=== PATIENT | female | born 1970 | race Caucasian/White ===

== ENCOUNTER → 2023-12-23 12:59 | Outpatient (REF) | payer OTHER, SELFPAY | LOC: HWWDC 12:59 | PROVIDERS: ATTENDING PHYSICIAN Internal Medicine | DX: Z12.31 Encounter for screening mammogram for malignant neoplasm of breast (principal) | CPT/HCPCS: 77063; 77067 ==

== ENCOUNTER 2024-05-25 15:09 | Emergency (ER) | payer OTHER, SELFPAY ==
[2024-05-25 15:18] VITALS: BP 174/100
[2024-05-25 15:52] LABS: % Basophils 0.7 % (0-2); % Eosinophils 3.9 % (0-6); % Immature Granulocytes 0.2 % (0-0.5); % Monocytes 8.3 % (1.7-9.3); % Neutrophils 65.9 % (42.2-75.2); Absolute Basophils 0.1 10^3/uL (0-0.2); Absolute Eosinophils 0.3 10^3/uL (0-0.7); Absolute Lymphocytes 1.9 10^3/uL (1.2-3.4); Absolute Monocytes 0.7 10^3/uL (0.1-0.6); Absolute Neutrophils 5.8 10^3/uL (1.4-6.5); Hematocrit 38.9 % (37.0-47.0); Hemoglobin 12.5 g/dL (12.0-16.0); Mean Corp Hgb Conc. 32.1 g/dL (33.0-37.0); Mean Corpuscular Hgb 25.1 pg (27.0-31.0); Mean Corpuscular Volume 78.1 fL (81.0-99.0); Mean Platelet Volume 8.6 fL (7.4-10.4); Nucleated Red Blood Cells % 0 %; Platelet Count 330 10^3/uL (130-400); Red Blood Cell Count 4.98 10^6/uL (4.20-5.40); Red Cell Dist. Width 14.2 % (11.5-14.5); White Blood Cell Count 8.8 10^3/uL (4.8-10.8)
[2024-05-25 16:02] LABS: ALT (SGPT) 27 U/L (0-35); AST (SGOT) 31 U/L (14-36); Albumin 4.6 g/dl (3.5-5.0); Alkaline Phosphatase 120 U/L (38-126); Blood Urea Nitrogen 16 mg/dl (7-17); Calcium 9.6 mg/dl (8.4-10.2); Carbon Dioxide 25 mmol/L (22-30); Chloride 103 mmol/L (98-107); Glucose 99 mg/dl (70-99); Potassium 4.3 mmol/L (3.5-5.1); Sodium 138 mmol/L (135-145); Total Bilirubin 0.5 mg/dl (0.2-1.3); Total Protein 7.6 g/dl (6.3-8.2); eGFR > 60.00
[2024-05-25 17:38] VITALS: BP 138/83; BMI 43.0
[2024-05-25 17:39] VITALS: BP 138/83
--- NOTE | 2024-05-25 17:40 | ED.GENMED ---
History of Present Illness
General
Chief Complaint: Dizziness
Source: patient and spouse
Exam Limitations: none
Time Seen by Provider: 05/25/24 17:25
Nursing documentation reviewed up to this point in time: agreed with
History of Present Illness
History of Present Illness:
54-year-old female with history of hypertension, distant history of cardiomyopathy with AICD in place who presents to the ER for evaluation after an episode of dizziness. Patient says she was at work around 3 PM sitting on her computer when she had
rather abrupt onset of intense room spinning sensation. She says this was associated with nausea and diaphoresis. Had an episode of vomiting here. She came to the ER for evaluation. Since arrival she says symptoms have improved. She still has
some mild symptoms with positional change she says. She denies any associated headache. Denies any change in her vision or speech. She denies any focal weakness or numbness in her extremities. She denies any chest pain or palpitations, shortness
of breath, abdominal pain or any other complaints. She says she has never had similar symptoms in the past. She denies recent viral syndrome.
Past History
Past History
ED Past Medical History: None
ED Past Surgical History:
Social History
Tobacco: Non-smoker
Personal:
Living: with family
Review of Systems
Review of Systems
All Other Systems: ROS reviewed and negative except as documented in HPI and ROS
Constitutional: Denies fever or chills
EENT: Denies sore throat or runny nose
Respiratory: Denies cough or trouble breathing
Cardiac: Denies chest pain or palpitations
ABD/GI: Reports nausea and vomiting; Denies abdominal pain
: Denies flank pain
Musculoskeletal: Denies neck pain or back pain
Neurological: Reports dizzy; Denies headache, weakness or numbness
Phy Exam
Physical Exam
Physical Exam:
General: Awake, alert, oriented x3; no acute distress
Head: Normocephalic, atraumatic
Eyes: Conjunctiva normal, EOMI without nystagmus, pupils equal round and reactive to light bilaterally; negative Magdi-Hallpike
Ears: TMs clear bilaterally
Throat: Airway intact, handling secretions
Neck: Trachea midline, supple without meningismus
Lungs: Clear to auscultation bilaterally, no wheezing, rales, rhonchi
Heart: Regular rate and rhythm, no murmurs, gallops, or rubs
Abd: Soft, non distended, nontender
Neuro: Cranial nerves intact 2 through 12, speech fluid without dysarthria or aphasia, no limb ataxia, motor and sensory intact in all extremities
Extremities: No edema in extremities, warm and well-perfused
Scores
Heart Failure Risk
Heart Failure Risk Score: Not Applicable
Heart Score for Chest Pain Patients
STEMI patient?: Not applicable
Withdrawal Assessment of Alcohol
Withdrawal Assessment Completed?: Not applicable
Course
Orders/Labs/Results
Orders:
Orders
05/25/24 15:20
Electrocardiogram (*1) Urgent
Reason for Study: Vertigo / Dizzy
EKG- Treatment ONCE
05/25/24 15:37
Complete Blood Count/With Diff Urgent
Comprehensive Metabolic Panel Urgent
05/25/24 17:38
CT Head W/o Iv Contrast Urgent
Comment:
Reason For Exam: dizziness
Interrogate Pacemaker- Treatment ONCE
Abnormal Lab Results
05/25/24
15:37
MCV 78.1 L fL
(81.0-99.0)
MCH 25.1 L pg
(27.0-31.0)
MCHC 32.1 L g/dL
(33.0-37.0)
Absolute Monos (auto) 0.7 H 10^3/uL
(0.1-0.6)
05/25/24 15:37
05/25/24 15:37
Vital Signs
Initial and Last Documented VS:
Initial Vital Signs
Temp Pulse Resp BP Pulse Ox
36.6 C 85 16 174/100 95
05/25/24 15:18 05/25/24 15:18 05/25/24 15:18 05/25/24 15:18 05/25/24 15:18
Last Documented Vital Signs
Temp Pulse Resp BP Pulse Ox
36.6 C 97 24 140/80 98
05/25/24 15:18 05/25/24 18:31 05/25/24 18:31 05/25/24 18:00 05/25/24 18:15
MDM/Problems Addressed
Differential Diagnosis Includes:
BPPV, labyrinthitis, CVA considered less likely clinically
MDM/Problems Addressed:
54-year-old female presents evaluation of dizziness�started at rest this afternoon and symptoms have improved although she is felt some mild symptoms with positional change. Hypertensive otherwise normal vitals. Physical exam as above. Labs sent
off in triage including a CBC and CMP which were unremarkable. Given no similar symptoms in the past we will check CT head to rule out mass or bleed but very low suspicion for central vertigo. Will check EKG and interrogate device. Monitor
closely reassess after the above. Clinical suspicion is for peripheral vertigo.
CT head negative for any acute pathology. Reviewed [employer] report�no events noted. Patient stable on clinical reassessment. Symptoms have resolved she was up into the bathroom without symptoms. Presentation consistent with peripheral vertigo.
Stable for discharge. Meclizine as needed, referral to ENT. All questions answered.
Acute Exacerbation and/or Progression of Chronic Illness:
Acutely hypertensive
Acute Exacerbation and/or Progression of Chronic Illness: HTN
*Radiology
Radiology exam reviewed: radiology read reviewed
*Pulse Oximetry
Patient hypoxic: no
*EKG
Interpreted by ED Provider?: Yes
Heart Rate: 83
Rate: normal
Rhythm: sinus
[place]: normal axis
Interval: normal interval
QRS Pattern: normal QRS
Ischemia: no ischemia
*Critical Care Note
Total Time (30-74mins, 75-104mins- exclusive of procedures): Not Applicable
Data Reviewed
Review of Other/Old Records Reveals: Records
Source: patient and spouse
ED Attending Note
-
Portions of this chart may have been created with voice recognition software.� Occasional wrong word or��sound alike� substitutions may have occurred due to the inherent limitations of voice recognition software.
Discharge Plan
Departure
Patient Disposition: Home (Routine Discharge)
Date of Disposition: 05/25/24
Time of Disposition: 19:16
Patient with high blood pressure during this ER visit?: Yes
Discharge Problem:
Vertigo
Instructions: Vertigo (a type of dizziness)
Prescriptions:
New
meclizine 25 mg tablet
25 mg PO BID PRN (Reason: dizziness) Qty: 20 0RF
No Action
pantoprazole [Protonix] 40 MG tablet,delayed release (DR/EC)
40 mg PO DAILY
Patient Comments:
Takes @ noon
carvedilol 3.125 MG tablet
3.125 mg PO BID
ferrous sulfate [iron] 325 MG tablet
65 tab PO DAILY
escitalopram oxalate 10 MG tablet
10 mg PO DAILY
valsartan 40 MG tablet
40 mg PO BID
Referrals:
Miguel Coyne MD [Active] - Call in 1-3 days for appt
Jaime Conroy DO [Family Provider] -
Activity Restrictions/Additional Instructions:
Thank you for visiting the Emergency Department at [facility].
1. Please schedule a follow up appointment as directed. Call first thing tomorrow morning to make an appointment.
2. If indicated, please take your medications as instructed and indicated on discharge paperwork.
3. If any of your symptoms do not improve, or persist, or become more severe within 6-12 hours, please return to the emergency department for further care.
4. Please return to the emergency department if you develop a headache, neck pain/stiffness, fever greater than 100.4F, chest pain, shortness of breath, persistent nausea, vomiting, slurred speech, difficulty walking, numbness/tingling, weakness,
signs of infection or any other symptoms that are worrisome to you.
Please call [phone] if you have any questions.
Interventions
Interventions:
*Risk Screen - Suicide Last Done: 05/25/24 15:19
*General Assessment Last Done: 05/25/24 17:40
*Neglect/Abuse Screening Last Done: 05/25/24 15:19
*ED- Fall Risk Assessment Last Done: 05/25/24 17:40
*ED COVID-19 Vaccine History Last Done: 05/25/24 17:40
ED- Neurological Assessment Last Done: 05/25/24 17:40
Discharge Date and Time
Print Language: HUNGARIAN
[2024-05-25 18:00] VITALS: BP 140/80
[2024-05-25 19:10] VITALS: BP 118/70
== END 2024-05-25 19:36 | disposition home or self-care (01) ==
LOC: EMR 15:09
PROVIDERS: Emergency Medicine; EMERGENCY PHYSICIAN Emergency Medicine; FAMILY PHYSICIAN Internal Medicine
DX: R42 Dizziness and giddiness (principal); I10 Essential (primary) hypertension; I42.9 Cardiomyopathy, unspecified; Z95.810 Presence of automatic (implantable) cardiac defibrillator
CPT/HCPCS: 99284; 70450; 80053; 85025; 93005